=== PATIENT | male | born 1995 | race Caucasian/White ===

== ENCOUNTER 2020-05-03 22:09 | Emergency (ER) | payer OTHER ==
[~2020-05-03] VITALS: Ht 182.9 cm; Wt 97.5 kg
[2020-05-03 22:15] VITALS: BP 134/77; Ht 182.9 cm; Wt 97.5 kg
== END 2020-05-03 23:17 | disposition other institution (70) ==
LOC: ED 22:09
DX: Z02.89 Encounter for other administrative examinations (principal)